=== PATIENT | female | born 1940 | race Caucasian/White ===

== ENCOUNTER → 2016-08-07 | Outpatient (CLI) | payer OTHER, MEDICARE ==
[~2016-08-07] MED LIST: AMITRIPTYLINE H25 M2 PO; ARAVA20 MG PO; CALCIUM 600 +1 EAC5 PO; CYTOTEC200 MCG PO; DICLOFENAC SODI75 M1 PO; FLONASE 0.05%50 MCG NASAL; FOLIC ACID1 MG PO; LORATIDINE 10 M10 M1 PO; METHOTREXATE 22.5 MG PO; MULTIVITAMINS1 EAC7 PO; OMEGA-31000 M1 PO; OXYCONTIN30 MG PO; PAXIL10 MG PO; PERCOCET 10-321 EACH PO; PERCOCET 10-651 EACH PO; SYNTHROID75 MCG PO
== END ==
LOC: RAD 07:48
DX: Z12.31 Encounter for screening mammogram for malignant neoplasm of breast (principal)

== ENCOUNTER → 2017-08-13 | Outpatient (CLI) | payer OTHER, MEDICARE | LOC: RAD 06:33 | DX: Z12.31 Encounter for screening mammogram for malignant neoplasm of breast (principal); M81.0 Age-related osteoporosis without current pathological fracture; Z78.0 Asymptomatic menopausal state; Z85.3 Personal history of malignant neoplasm of breast ==

== ENCOUNTER → 2018-08-14 | Outpatient (CLI) | payer OTHER, MEDICARE | LOC: RAD 02:29 | DX: Z12.31 Encounter for screening mammogram for malignant neoplasm of breast (principal); Z85.3 Personal history of malignant neoplasm of breast; Z90.11 Acquired absence of right breast and nipple ==

== ENCOUNTER → 2019-09-10 | Outpatient (CLI) | payer OTHER, MEDICARE | LOC: BC 13:19 | DX: Z12.31 Encounter for screening mammogram for malignant neoplasm of breast (principal) ==

== ENCOUNTER → 2020-09-14 | Outpatient (CLI) | payer OTHER, MEDICARE | LOC: BC 07:57 | PROVIDERS: ATTEND Nurse Practitioner | DX: Z12.31 Encounter for screening mammogram for malignant neoplasm of breast (principal) ==